=== PATIENT | female | born 1940 | race Caucasian/White ===

== ENCOUNTER → 2018-05-21 | Outpatient (CLI) | payer MEDICARE, OTHER ==
--- NOTE | 2018-05-22 12:29 | RADIOLOGY REPORT (SQ) ---
EXAM DESCRIPTION: PET CT SKULL/THIGH COMPLETED DATE/TIME: 05/21/2018 9:47 pm REASON FOR STUDY: SOLITARY PULMONARY NODULE R91.1 SOLITARY PULMONARY NODULE J98.4 OTHER DISORDERS OF LUNG COMPARISON: No previous imaging. Outside report from [facility] 01/26/2018 RADIONUCLIDE AND DOSE: 9 mCi F18 FDG The route of agent administration: Intravenous FASTING BLOOD SUGAR: 75 mg/dl CONTRAST TYPE AND DOSE: No CT contrast given. TECHNIQUE: Blood glucose level was verified. Above dose of FDG was injected intravenously. 2-D seg mented attenuation correction images were obtained from the base of the skull to the midthighs. Nonc ontrast CT images were obtained for attenuation correction and fusion with emission images. CT image s were performed without oral or intravenous contrast and are not sensitive for parenchymal lesions. A series of overlapping emission PET images were obtained. Images reviewed and manipulated at [facility] work station by the radiologist. Images stored on PACS. LIMITATIONS: None. FINDINGS: HEAD AND NECK: No areas of abnormal metabolic activity in the soft tissues of the head and neck. CHEST: In the anterior inferior aspect of the right middle lobe, a 1.6 x 1.5 cm subpleural nodule is present with SUV of 5.4. This is worrisome for malignancy. ABDOMEN AND PELVIS: No areas of abnormal metabolic activity in the abdomen or pelvis. Expected physi ologic activity is present in the genitourinary system and bowel. PROXIMAL LOWER EXTREMITIES: No areas of abnormal metabolic activity in the soft tissues of the lower extremities. BONES: No abnormal metabolic activity in the visualized skeleton. ADDITIONAL CT FINDINGS: Old right mastectomy. Colonic diverticulosis without CT signs of acute diver ticulitis OTHER: Blood pool activity 2.1 SUV. Liver activity 2.5 SUV IMPRESSION: Hypermetabolic right middle lobe nodule worrisome for malignancy, just above the right h emidiaphragm in the anterior costophrenic angle TECHNICAL DOCUMENTATION: JOB ID: [id number] [employer]- All Rights Reserved Reading location - IP/workstation name: [email or web address]
== END ==
LOC: RAD 18:51
PROVIDERS: ATTEND Physician Assistant
DX: R91.1 Solitary pulmonary nodule (principal)
CPT/HCPCS: 78815; A9552

== ENCOUNTER 2018-06-02 05:51 | Day surgery (SDC) | payer MEDICARE, OTHER ==
[2018-06-02 06:36] LABS: INTERNATIONAL RATION (INR) 0.97; PROTHROMBIN TIME 13.4 SEC (11.4-15.4)
[2018-06-02 06:37] LABS: PARTIAL THROMBOPLASTIN TIME 34.8 SEC (23.5-35.8)
[2018-06-02 06:39] LABS: BLOOD UREA NITROGEN 13 mg/dL (7-20)
[2018-06-02 06:40] LABS: HEMATOCRIT 35.6 % (36.0-47.0); MEAN CORPUSCULAR HEMOGLOBIN 30.4 pg (27.0-33.4); MEAN CORPUSCULAR HGB CONC 33.7 g/dL (32.0-36.0); MEAN CORPUSCULAR VOLUME 90 fl (80-97); PLATELET COUNT 255 10^3/uL (150-450); RED BLOOD COUNT 3.95 10^6/uL (3.72-5.28); WHITE BLOOD COUNT 3.7 10^3/uL (4.0-10.5)
[2018-06-02] MEDS ORDERED: FENTANYL CITRATE INJ/PF 100 MCG/2 ML AMPUL ONE (08:30)
[2018-06-02] MEDS ORDERED: MIDAZOLAM 2 MG/2 ML INJ ONE (08:30)
[2018-06-02] MEDS ORDERED: LIDOCAINE 1% INJ-PF (10 MG/ML) 30 ML SDV ONE (08:30)
--- NOTE | 2018-06-02 09:54 | RADIOLOGY REPORT (SQ) ---
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 TECHNIQUE: CT guided biopsy of the right basilar pleural-based nodule performed with conscious sedat ion. CT Fluoroscopy Time: 13.[address] scanners at this facility use dose modulation, iterative reconstruction, and/or weight based d osing when appropriate to reduce radiation dose to as low as reasonably achievable (ALARA). [facility]: Dose Right [facility]: CareDose [facility]: Dose Right [facility]: Teradose 4D [facility]: [employer] RADIATION DOSE: mGy. FINDINGS: After obtaining informed consent and explaining the risks and benefits of conscious sedati on,the patient agreed to the procedure. Prior to the procedure, a time out was performed to verify th e patient's identity and planned procedure. IV sedation was administered and physician direction by the registered nurse using 0.5 milligrams of Versed and 50 micrograms of fentanyl, for conscious sedation. Physiologic monitoring was provided bef ore, during, and after sedation. The total sedation time was 30 minutes. Documentation face to face time, the performing proceduralist, spent monitoring the patient: [address] scanning was performed to localize the percutaneous site for the biopsy approach. After sterile skin prep and local lidocaine for skin and deep tissue anesthesia, a coaxial biopsy nee dle was used to obtain multiple cores of tissue. Additional limited view was performed to demonstrate needle biopsy trough across the lesion of interest. The biopsy tissue [facility]. There were no immediate complications. Pathology is pending at the time of dictation. IMPRESSION: CT FLUOROSCOPY GUIDED BIOPSY OF THE RIGHT BASILAR PLEURAL BASED NODULE PERFORMED WITHOUT IMMEDIATE COMPLICATION. PATHOLOGY PENDING. COMMENT: Quality ID 145: Final reports for procedures using fluoroscopy that document radiation exp osure indices, or exposure time and number of fluorographic images (if radiation exposure indices are not available) Patient medication list reviewed: Yes- Quality ID# [id number]:Eligible professional attests to documenting i n the medical record they obtained, updated, or reviewed the patient's current medications.. TECHNICAL DOCUMENTATION: JOB ID: [id number] Quality ID# [id number]: Final reports with documentation of one or more dose reduction techniques (e.g., Aut omated exposure control, adjustment of the mA and/or kV according to patient size, use of iterative r econstruction technique) 2010 [employer]- All Rights Reserved Reading location - IP/workstation name: [email or web address]
--- NOTE | 2018-06-02 09:54 | RADIOLOGY REPORT (SQ) ---
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 TECHNIQUE: CT guided biopsy of the right basilar pleural-based nodule performed with conscious sedat ion. CT Fluoroscopy Time: 13.[address] scanners at this facility use dose modulation, iterative reconstruction, and/or weight based d osing when appropriate to reduce radiation dose to as low as reasonably achievable (ALARA). [facility]: Dose Right [facility]: CareDose [facility]: Dose Right [facility]: Teradose 4D [facility]: [employer] RADIATION DOSE: mGy. FINDINGS: After obtaining informed consent and explaining the risks and benefits of conscious sedati on,the patient agreed to the procedure. Prior to the procedure, a time out was performed to verify th e patient's identity and planned procedure. IV sedation was administered and physician direction by the registered nurse using 0.5 milligrams of Versed and 50 micrograms of fentanyl, for conscious sedation. Physiologic monitoring was provided bef ore, during, and after sedation. The total sedation time was 30 minutes. Documentation face to face time, the performing proceduralist, spent monitoring the patient: [address] scanning was performed to localize the percutaneous site for the biopsy approach. After sterile skin prep and local lidocaine for skin and deep tissue anesthesia, a coaxial biopsy nee dle was used to obtain multiple cores of tissue. Additional limited view was performed to demonstrate needle biopsy trough across the lesion of interest. The biopsy tissue was submitted to the lab in [facility]. There were no immediate complications. Pathology is pending at the time of dictation. IMPRESSION: CT FLUOROSCOPY GUIDED BIOPSY OF THE RIGHT BASILAR PLEURAL BASED NODULE PERFORMED WITHOUT IMMEDIATE COMPLICATION. PATHOLOGY PENDING. COMMENT: Quality ID 145: Final reports for procedures using fluoroscopy that document radiation exp osure indices, or exposure time and number of fluorographic images (if radiation exposure indices are not available) Patient medication list reviewed: Yes- Quality ID# [id number]:Eligible professional attests to documenting i n the medical record they obtained, updated, or reviewed the patient's current medications.. TECHNICAL DOCUMENTATION: JOB ID: [id number] Quality ID# [id number]: Final reports with documentation of one or more dose reduction techniques (e.g., Aut omated exposure control, adjustment of the mA and/or kV according to patient size, use of iterative r econstruction technique) 2010 [employer]- All Rights Reserved Reading location - IP/workstation name: [email or web address]
--- NOTE | 2018-06-02 09:56 | RADIOLOGY REPORT (SQ) ---
EXAM DESCRIPTION: CHEST SINGLE VIEW COMPLETED DATE/TIME: 06/02/2018 9:46 am REASON FOR STUDY: RIGHT MIDDLE LOBE NODULE---POST BIOPSY COMPARISON: SAME DAY CT EXAM PARAMETERS: NUMBER OF VIEWS: One view. TECHNIQUE: Single frontal radiographic view of the chest acquired. RADIATION DOSE: NA LIMITATIONS: None. FINDINGS: LUNGS AND PLEURA: No pneumothorax post right basilar pleural based nodule biopsy. No new airspace disease. No new effusion. MEDIASTINUM AND HILAR STRUCTURES: No masses. Contour normal. HEART AND VASCULAR STRUCTURES: Normal heart size. Aortic atherosclerosis. BONES: No acute findings. Bulky bilateral 1st rib costo sternal cartilage. HARDWARE: None in the chest. OTHER: No other significant finding. IMPRESSION: No pneumothorax post right-sided pleural based nodule biopsy. TECHNICAL DOCUMENTATION: JOB ID: [id number] [employer]- All Rights Reserved Reading location - IP/workstation name: [email or web address]
--- NOTE | 2018-06-02 12:19 | RADIOLOGY REPORT (SQ) ---
EXAM DESCRIPTION: CHEST SINGLE VIEW COMPLETED DATE/TIME: 06/02/2018 11:53 am REASON FOR STUDY: RIGHT MIDDLE LOBE NODULE---POST BIOPSY COMPARISON: Same day radiograph EXAM PARAMETERS: NUMBER OF VIEWS: One view. TECHNIQUE: Single frontal radiographic view of the chest acquired. RADIATION DOSE: NA LIMITATIONS: None. FINDINGS: LUNGS AND PLEURA: Stable right basilar nodule. No pneumothorax post biopsy. No new effus ion. No new airspace disease. MEDIASTINUM AND HILAR STRUCTURES: Stable. HEART AND VASCULAR STRUCTURES: Stable P BONES: No acute findings. HARDWARE: None in the chest. OTHER: No other significant finding. IMPRESSION: No pneumothorax post right sided lung biopsy. TECHNICAL DOCUMENTATION: JOB ID: [id number] [employer]- All Rights Reserved Reading location - IP/workstation name: [email or web address]
[2018-06-02 14:47] VITALS: BP 130/89
== END 2018-06-02 12:10 | disposition home or self-care (01) ==
LOC: RAD 05:51
PROVIDERS: ATTEND Physician Assistant
DX: R91.1 Solitary pulmonary nodule (principal); Z79.01 Long term (current) use of anticoagulants; Z88.1 Allergy status to other antibiotic agents; Z88.5 Allergy status to narcotic agent
CPT/HCPCS: 36415; 84520; 82565; 85027; 85610; 85730; 88342 ×2; 88341 ×2; 88305 ×2; 88312 ×2; 71045; 77012; 32405; J2250; J3010; J3490